=== PATIENT | male | born 1955 | race Caucasian/White ===

== ENCOUNTER → 2016-06-17 | Outpatient (CLI) | payer OTHER ==
[~2016-06-17] MED LIST: CONTRAST GIVEN MC PRN; IOHEXOL 300 MG/ML 100ML VIAL. IV ONE
--- NOTE | 2016-06-17 13:23 | KCIC ---
Examination: CT abdomen pelvis without and with IV contrast HISTORY History of mass right kidney on ultrasound. COMPARISON None available Technique: Axial CT images of the abdomen and pelvis were performed with oral and IV contrast. Coronal sagittal reformats were performed. Exposure: One or more of the following dose reduction technique were utilized for this examination: 1. Automated exposure control. 2.Adjustment of MA and /or KV according to patient size. 3. Use of iterative reconstruction technique. Findings: The visualized bibasilar lungs grossly appears unremarkable. No evidence of free air identified in the abdomen. The visualized liver, spleen, adrenals grossly appears unremarkable. The visualized pancreas grossly appears unremarkable. The gallbladder is mildly distended. The stomach is mildly distended. The small bowel is nondilated. Feces and gas noted throughout the colon. There is 5 millimeter calcification identified in the midpole of the left kidney likely intrarenal collecting system calculus. No evidence of hydronephrosis. There is no evidence of enhancing renal mass identified. There is some prominence of the midportion of the right kidney probably prominent column of Koko. The visualized ureters grossly appears unremarkable. The urinary bladder is mildly distended. There is mild thickened appearance of the wall of the urinary bladder. No evidence of lytic bony destructive lesion. Moderate degenerative changes identified in the lower lumbar vertebral level. IMPRESSION - No evidence of enhancing renal mass identified. There is some prominence of the midportion of the right kidney probably prominent column of Koko. Followup exam followup ultrasound in 4-6 was is recommended to document stability. - Mild thickened appearance of the wall of the urinary bladder, nonspecific. - 5 millimeter intrarenal collecting system calculus identified in the left kidney. No evidence of hydronephrosis. Electronically signed by: Hardik Hinton (Jun 17, 2016 13:22:06)
== END | disposition home or self-care (01) ==
LOC: KCIC US 09:01
PROVIDERS: ATTEND Urology
DX: R94.31 Abnormal electrocardiogram [ECG] [EKG] (principal); I10 Essential (primary) hypertension; Z87.891 Personal history of nicotine dependence
CPT/HCPCS: 74178; 82565; Q9967